=== PATIENT | male | born 1965 | race Caucasian/White ===

== ENCOUNTER → 2016-05-31 | Emergency (ER) | payer BC, OTHER ==
[2016-05-31 14:36] VITALS: BP 118/78; PULSE 98; TEMP 98.8; BMI 27.4
--- NOTE | 2016-05-31 15:54 | PDOC ---
History of Present Illness - General Chief Complaint: Pain Stated Complaint: ABD PAIN Time Seen by Provider: 05/31/16 15:47 History Source: Patient Exam Limitations: No Limitations - History of Present Illness Travel History: No Initial Comments: 05/31/16 15:54 51 yo M with PMhx of HLD and GERD presents with one day history of increased abdominal pain. He states that for the past few months he has had dull LLQ abdominal pain that was acutely exacerbated over the past day. He describes constant non-radiating 6/10 LLQ sharp pain. Pain is worse with palpation and no alleviating factors. Today he also mentions that he has some GERD like symptoms that were worrisome and prompted his trip to ED. He has a history of kidney stones that he sees urology every 6mo and has a known left sided stone but he does not believe this to be kidney stone pain. No change in bowel or bladder habbits. He has family history of colon ca. last colonoscopy was 2014 and was unremarkable. Denies fevers, chills, blood in stools, CP, FOSTER, SOB, N/V. 05/31/16 16:09 Timing/Duration: reports: constant Quality: reports: moderate Abdominal Pain Onset Location: reports: LLQ Pain Radiation: reports: no radiation Activities at Onset: reports: no specific activity Aggravating Factors: improves with: None Alleviating Factors: improves with: None Past History - Travel Traveled outside of the country in the last 30 days: No Close contact w/someone who was outside of country & ill: No - Past Medical History Allergies/Adverse Reactions: Allergies Allergy/AdvReac Type Severity Reaction Status Date / Time No Known Allergies Allergy Verified 05/31/16 14:32 Home Medications: Ambulatory Orders Simvastatin [Zocor -] 5 mg PO HS 05/31/16 GI Disorders: Yes (GERD) Hypercholesterolemia: Yes Kidney Stones: Yes - Surgical History Orthopedic Surgery: Yes (right knee) - Family Disease History Family Disease History: Diabetes: Father (pancreatic cancer), Sister (colon cancer) - Psycho/Social/Smoking Cessation Hx Anxiety: No Suicidal Ideation: No Smoking History: Never smoked Have you smoked in the past 12 months: No Information on smoking cessation initiated: No Hx Alcohol Use: No Drug/Substance Use Hx: No Substance Use Type: None Abd/GI Specific PMHX - Complaint Specific PMHX Colitis: No Diverticulitis: No Gall Bladder Disease: No GERD: Yes Hepatitis: No Pancreatitis: No Review of Systems - Review of Systems Constitutional: No: Chills, Diaphoresis, Fever Respiratory: No: Cough, Shortness of Breath Cardiac (ROS): No: Chest Pain, Edema ABD/GI: Yes: Constipated. No: Abdominal Distended, Blood Streaked Bowels : No: Dysuria, Flank Pain, Hematuria *Physical Exam - Vital Signs Last Vital Signs Temp Pulse Resp BP Pulse Ox 98.8 F 98 H 18 118/78 100 05/31/16 14:33 05/31/16 14:33 05/31/16 14:33 05/31/16 14:33 05/31/16 14:33 - Physical Exam General Appearance: Yes: Appropriately Dressed. No: Apparent Distress HEENT: positive: EOMI, ROSI, Normal ENT Inspection, TMs Normal Neck: positive: Supple Respiratory/Chest: positive: Lungs Clear, Normal Breath Sounds. negative: Respiratory Distress, Accessory Muscle Use Cardiovascular: positive: Regular Rhythm, Regular Rate Vascular Pulses: Dorsalis-Pedis (R): 2+, Doralis-Pedis (L): 2+ Gastrointestinal/Abdominal: positive: Normal Bowel Sounds, Soft, Tenderness ( LLQ upon deep palpation). negative: Distended, Guarding, Rebound, Hepatomegaly , Spleenomegaly Musculoskeletal: positive: Normal Inspection. negative: CVA Tenderness Extremity: positive: Normal Inspection, Normal Range of Motion Integumentary: positive: Normal Color, Dry, Warm. negative: Cyanotic, Erythema Neurologic: positive: documentation writer II-XII NML intact, Fully Oriented, Alert, Normal Mood/ Affect, Motor Strength 5/5 ED Treatment Course - LABORATORY CBC & Chemistry Diagram: 05/31/16 17:00 05/31/16 17:00 Medical Decision Making - Medical Decision Making 05/31/16 16:09 51 yo M with PMhx of HLD and GERD presents with one day history of increased abdominal pain.Pain has been present for several months and recently become more intense. * CBC,CMP, UA * Lipase and Trops *DC/Admit/Observation/Transfer Diagnosis at time of Disposition: Abdominal pain - Discharge Dispostion Disposition: HOME Condition at time of disposition: Stable - Referrals Referrals: Deo Zaidi [Primary Care Provider] - - Patient Instructions Printed Discharge Instructions: DI for Abdominal Pain-Adult, DI for Diverticulosis Additional Instructions: Your blood work demonstrates no findings at this time. Your urine studies are negative. Your CAT scan demonstrates unknown kidney stone on the left side as well as diverticula. Please maintain a high-fiber diet and avoid foods like strawberries with seeds in them. Please follow-up with her primary care doctor. Please take the results I given you and taken to doctor.
--- NOTE | 2016-05-31 17:04 | PDOC ---
[id number] I have performed the following: I have examined & evaluated the patient, The case was reviewed & discussed with the resident, I agree w/resident's findings & plan - HPI HPI: 05/31/16 17:52 51y M hx of HL, presents with epigsatric pain just prior to lunch lasting approx 1/2 hr, p[t also complaining of several months of LLQ pain and pt does have mild LLQ tenderness - exam is unremarkable. epgiastric pain - atypical for ACS, no associated sob, castro, will ck trops, lipase will ck ua to r/o kidney stones vs diverticulitis case signed out to dr. cruz to fu with results and reasses [facility] patient - Physicial Exam PE: 06/04/16 20:11 see above - Medical Decision Making 06/04/16 20:11 see above Heart Score/ECG Review - ECG Impressions Comment:: 05/31/16 17:04 Twelve-lead EKG was performed and reviewed by me. There is normal sinus rhythm with a normal rate. rate of 70 The axis is normal. The intervals are normal. There is normal R wave progression There are no ST or T wave abnormalities. Impression: Normal twelve-lead EKG
[2016-05-31 17:32] LABS: URINE APPEARANCE CLEAR; URINE BILIRUBIN NEGATIVE (NEGATIVE); URINE BLOOD NEGATIVE (NEGATIVE); URINE COLOR YELLOW; URINE GLUCOSE (UA) NEGATIVE (NEGATIVE); URINE KETONE NEGATIVE (NEGATIVE); URINE LEUK ESTERASE NEGATIVE (NEGATIVE); URINE NITRITE NEGATIVE (NEGATIVE); URINE PROTEIN NEGATIVE (NEGATIVE); URINE UROBILINOGEN NEGATIVE E.U./dl (0.2-1.0)
[2016-05-31 17:42] LABS: BASOPHIL 0.3 % (0-2.0); EOSINOPHIL 0.1 % (0-4.5); MCH 31.7 pg (25.7-33.7); MCHC 33.9 g/dl (32.0-35.9); MEAN CELL VOLUME 93.7 fl (80-96); MEAN PLT VOLUME 10.7 fl (7.5-11.1); NEUTROPHILS 76.9 % (42.8-82.8); PLATELET COUNT 177 K/MM3 (134-434); RDW 13.2 % (11.9-15.9); WHITE BLOOD COUNT 7.1 K/mm3 (4.0-10.0)
[2016-05-31 17:57] LABS: ALBUMIN 4.3 g/dl (3.4-5.0); ALK PHOS 54 U/L (45-117); ANION GAP 9 (8-16); BILIRUBIN,TOTAL 0.7 mg/dL (0.2-1.0); CALCIUM 9.3 mg/dL (8.5-10.1); CO2 28 mmol/L (21-32); COCKROFT - GAULT 74.75; CREATININE 1.2 mg/dL (0.7-1.3); GLUCOSE,RANDOM 85 mg/dL (74-106); SGOT/AST 21 U/L (15-37); SGPT/ALT 32 U/L (12-78)
[2016-05-31 18:08] LABS: TROPONIN I < 0.02 ng/ml (0.00-0.05)
--- NOTE | 2016-05-31 20:55 | PDOC ---
*Physical Exam - Vital Signs Last Vital Signs Temp Pulse Resp BP Pulse Ox 98.8 F 98 H 18 118/78 100 05/31/16 14:33 05/31/16 14:33 05/31/16 14:33 05/31/16 14:33 05/31/16 14:33 ED Treatment Course - LABORATORY CBC & Chemistry Diagram: 05/31/16 17:00 05/31/16 17:00 - ADDITIONAL ORDERS Additional order review: Laboratory Results 05/31/16 05/31/16 05/31/16 17:00 17:00 16:17 Sodium 140 Potassium 4.3 Chloride 103 Carbon Dioxide 28 Anion Gap 9 BUN 15 Creatinine 1.2 Creat Clearance w eGFR > 60 Random Glucose 85 Calcium 9.3 Total Bilirubin 0.7 AST 21 ALT 32 Alkaline Phosphatase 54 Creatine Kinase 168 Creatine Kinase Index Y CK-MB (CK-2) < 1.000 Troponin I < 0.02 Total Protein 8.0 Albumin 4.3 Lipase 124 Urine Color Yellow Urine Appearance Clear Urine pH 5.0 Ur Specific [place] 1.023 Urine Protein Negative Urine Glucose (UA) Negative Urine Ketones Negative Urine Blood Negative Urine Nitrite Negative Urine Bilirubin Negative Urine Urobilinogen Negative Ur Leukocyte Esterase Negative 05/31/16 17:00 RBC 4.71 MCV 93.7 MCHC 33.9 RDW 13.2 MPV 10.7 Neutrophils % 76.9 Lymphocytes % 15.6 Monocytes % 7.1 Eosinophils % 0.1 Basophils % 0.3 Medical Decision Making - Medical Decision Making 05/31/16 20:52 Sign-out received from outgoing Emergency Physician Dr. Hein Pt interviewed and examined Ancillary studies reviewed Case discussed in detail with oncoming Emergency Physician including history, physical exam and ancillary studies. CBC, BMP 05/31/16 17:00 05/31/16 17:00 CMP Sodium 140 mmol/L (136-145) 05/31/16 17:00 Potassium 4.3 mmol/L (3.5-5.1) 05/31/16 17:00 Chloride 103 mmol/L (98-107) 05/31/16 17:00 Carbon Dioxide 28 mmol/L (21-32) 05/31/16 17:00 Anion Gap 9 (8-16) 05/31/16 17:00 BUN 15 mg/dL (7-18) 05/31/16 17:00 Creatinine 1.2 mg/dL (0.7-1.3) 05/31/16 17:00 Creat Clearance w eGFR > 60 (>60) 05/31/16 17:00 Random Glucose 85 mg/dL (74-106) 05/31/16 17:00 Calcium 9.3 mg/dL (8.5-10.1) 05/31/16 17:00 Total Bilirubin 0.7 mg/dL (0.2-1.0) 05/31/16 17:00 AST 21 U/L (15-37) 05/31/16 17:00 ALT 32 U/L (12-78) 05/31/16 17:00 Alkaline Phosphatase 54 U/L (45-117) 05/31/16 17:00 Creatine Kinase 168 IU/L (39-308) 05/31/16 17:00 Creatine Kinase Index Y 05/31/16 17:00 CK-MB (CK-2) < 1.000 ng/ml (0.5-3.6) 05/31/16 17:00 Troponin I < 0.02 ng/ml (0.00-0.05) 05/31/16 17:00 Total Protein 8.0 g/dl (6.4-8.2) 05/31/16 17:00 Albumin 4.3 g/dl (3.4-5.0) 05/31/16 17:00 Lipase 124 U/L (73-393) 05/31/16 17:00 Urine Test Results Urine Color Yellow 05/31/16 16:17 Urine Appearance Clear 05/31/16 16:17 Urine pH 5.0 (5.0-8.0) 05/31/16 16:17 Ur Specific [place] 1.023 (1.001-1.035) 05/31/16 16:17 Urine Protein Negative (NEGATIVE) 05/31/16 16:17 Urine Glucose (UA) Negative (NEGATIVE) 05/31/16 16:17 Urine Ketones Negative (NEGATIVE) 05/31/16 16:17 Urine Blood Negative (NEGATIVE) 05/31/16 16:17 Urine Nitrite Negative (NEGATIVE) 05/31/16 16:17 Urine Bilirubin Negative (NEGATIVE) 05/31/16 16:17 Ur Leukocyte Esterase Negative (NEGATIVE) 05/31/16 16:17 CT scan of the abdomen pelvis reviewed. He reports that he has known history of kidney stone on his left side. I had also informed patient of his findings of diverticula and counseled him on high fiber diet and avoidance of foods that could potentially evoke diverticulitis such as diverticulitis. Patient verbalized understanding agrees with plan. Patient reports feeling well and appears well. He is now asymptomatical like to go home. I discussed the physical exam findings, ancillary test results and final diagnoses with the patient. I answered all of the patient's questions. The patient was satisfied with the care received and felt comfortable with the discharge plan and treatment plan. The patient will call their primary care physician within 24 hours to arrange follow-up and will return to the Emergency Department with any new, persistant or worsening symptoms. *DC/Admit/Observation/Transfer Diagnosis at time of Disposition: Abdominal pain Qualifiers: Abdominal location: unspecified location Qualified Code(s): R10.9 - Unspecified abdominal pain - Discharge Dispostion Disposition: HOME Condition at time of disposition: Stable Admit: No - Referrals Referrals: Deo Zaidi [Primary Care Provider] - - Patient Instructions Printed Discharge Instructions: DI for Abdominal Pain-Adult, DI for Diverticulosis Additional Instructions: Your blood work demonstrates no findings at this time. Your urine studies are negative. Your CAT scan demonstrates unknown kidney stone on the left side as well as diverticula. Please maintain a high-fiber diet and avoid foods like strawberries with seeds in them. Please follow-up with her primary care doctor. Please take the results I given you and taken to doctor. - Post Discharge Activity
--- NOTE | 2016-06-01 16:26 | EKG ---
Test Reason : Blood Pressure : / mmHG Vent. Rate : 070 BPM Atrial Rate : 070 BPM P-R Int : 146 ms QRS Dur : 078 ms QT Int : 390 ms P-R-T Axes : 052 009 033 degrees QTc Int : 421 ms NORMAL SINUS RHYTHM NORMAL ECG NO PREVIOUS ECGS AVAILABLE Confirmed by DESIREE WOOD MD ([id number]) on 06/01/2016 4:26:21 PM Referred By: Confirmed By:DESIREE WOOD MD
== END | disposition home or self-care (01) ==
LOC: JER 14:13
DX: R10.32 Left lower quadrant pain (principal); K21.9 Gastro-esophageal reflux disease without esophagitis; E78.00 Pure hypercholesterolemia, unspecified; Z87.442 Personal history of urinary calculi
CPT/HCPCS: 36415; 74177-TC; 80053; 81003; 82550; 82553; 83690; 84484; 85025; 93005; 93010; 99282-25; Q9967

== ENCOUNTER 2018-11-23 09:20 | Emergency (ER) | payer BC, OTHER ==
[2018-11-23 09:43] VITALS: BP 125/94; PULSE 101; TEMP 99; BMI 27.4
[2018-11-23] MEDS ORDERED: ONDANSETRON 4 MG/2 ML VIAL IVPUSH ONE (10:14)
[2018-11-23] MEDS ORDERED: KETOROLAC TROMETHAMINE 30 MG/1 ML VIAL IVPUSH ONE (10:14)
[2018-11-23] MEDS ORDERED: ONDANSETRON 4 MG/2 ML VIAL ONE ×2 (10:32)
[2018-11-23] MEDS ORDERED: KETOROLAC TROMETHAMINE 30 MG/1 ML VIAL ONE (10:32)
[2018-11-23 11:12] LABS: BASO % 0.3 % (0-2.0); EOS % 0.2 % (0-4.5); HEMATOCRIT 47.5 % (35.4-49); HEMOGLOBIN 16.4 GM/dL (11.7-16.9); MCH 32.4 pg (25.7-33.7); MCHC 34.5 g/dl (32.0-35.9); MEAN CELL VOLUME 93.8 fl (80-96); MEAN PLT VOLUME 10.1 fl (7.5-11.1); MONO % 9.9 % (3.8-10.2); NEUT % 66.6 % (42.8-82.8); PLATELET COUNT 196 K/MM3 (134-434); RBC 5.06 M/mm3 (4.00-5.60); RDW 12.9 % (11.9-15.9); WHITE BLOOD COUNT 4.2 K/mm3 (4.0-10.0)
[2018-11-23 11:21] LABS: PH,URINE 5.5 (5.0-8.0); URINE APPEARANCE CLEAR; URINE BILIRUBIN NEGATIVE (NEGATIVE); URINE COLOR YELLOW; URINE GLUCOSE (UA) NEGATIVE (NEGATIVE); URINE KETONE TRACE (NEGATIVE); URINE LEUK ESTERASE NEGATIVE (NEGATIVE); URINE NITRITE NEGATIVE (NEGATIVE); URINE PROTEIN TRACE (NEGATIVE); URINE UROBILINOGEN 0.2 mg/dL (0.2-1.0)
[2018-11-23 11:37] LABS: ALBUMIN 4.4 g/dl (3.4-5.0); BILIRUBIN,TOTAL 0.7 mg/dL (0.2-1); BLOOD UREA NITROGEN 16.6 mg/dL (7-18); CALCIUM 9.9 mg/dL (8.5-10.1); CREATININE 1.3 mg/dL (0.55-1.3); MAGNESIUM 2.4 mg/dL (1.8-2.4); POTASSIUM 4.6 mmol/L (3.5-5.1); TOT PROT 8.5 g/dl (6.4-8.2)
--- NOTE | 2018-11-23 12:31 | PDOC ---
History of Present Illness - General Chief Complaint: Nausea/Vomiting Stated Complaint: JAK PAIN Time Seen by Provider: 11/23/18 09:56 History Source: Patient Exam Limitations: No Limitations - History of Present Illness Travel History: No Initial Comments: 11/23/18 10:39 53-year-old male presents the emergency room with complaints of Left abdominal cramping with nausea frequent belching for the past 3 days. Patient has no other complaints at this time. Patient history of diverticulosis but denies any other infectious or inflammatory diseases. Patient has no urinary complaints, irregular bowel movements, recent travel, recent illness, recent change in diet , or recent sick contacts. Timing/Duration: reports: intermittent Quality: reports: mild, cramping, sharpness Abdominal Pain Onset Location: reports: LUQ, LLQ Pain Radiation: reports: no radiation Activities at Onset: reports: none Aggravating Factors: improves with: None Alleviating Factors: improves with: None Past History - Travel Traveled outside of the country in the last 30 days: No Close contact w/someone who was outside of country & ill: No - Past Medical History Allergies/Adverse Reactions: Allergies Allergy/AdvReac Type Severity Reaction Status Date / Time No Known Allergies Allergy Verified 05/31/16 14:32 Home Medications: Ambulatory Orders Simvastatin [Zocor -] 5 mg PO HS 05/31/16 Oxycodone HCl/Acetaminophen [Percocet 5-325 mg Tablet] 1 - 2 tab PO Q6H PRN #12 tab MDD 4 11/23/18 Tamsulosin HCl [Flomax] 0.4 mg PO DAILY #7 cap.er.24h 11/23/18 GI Disorders: Yes (GERD) Hypercholesterolemia: Yes Kidney Stones: Yes - Surgical History Orthopedic Surgery: Yes (right knee) - Psycho Social/Smoking Cessation Hx Smoking History: Never smoked Have you smoked in the past 12 months: No Information on smoking cessation initiated: No Hx Alcohol Use: No Drug/Substance Use Hx: No Substance Use Type: None Patient Lives Alone: No Lives with/in: spouse/SO Abd/GI Specific PMHX - Complaint Specific PMHX Colitis: No Diverticulitis: No Gall Bladder Disease: No GERD: Yes Hepatitis: No Pancreatitis: No Review of Systems - Review of Systems Able to Perform ROS?: Yes Constitutional: No: Symptoms Reported HEENTM: No: Symptoms Reported Respiratory: No: Symptoms reported Cardiac (ROS): No: Symptoms Reported ABD/GI: Yes: Nausea, Abdominal cramping, Other (frequent belching) : No: Symptoms Reported Musculoskeletal: No: Symptoms Reported Integumentary: No: Symptoms Reported Neurological: No: Symptoms reported Endocrine: No: Symptoms Reported *Physical Exam - Vital Signs Last Vital Signs Temp Pulse Resp BP Pulse Ox 99 F 101 H 18 125/94 96 11/23/18 09:39 11/23/18 09:39 11/23/18 09:39 11/23/18 09:39 11/23/18 09:39 - Physical Exam General Appearance: Yes: Nourished, Appropriately Dressed. No: Apparent Distress HEENT: negative: Pale Conjunctivae Neck: positive: Normal Thyroid Respiratory/Chest: positive: Lungs Clear, Normal Breath Sounds. negative: Respiratory Distress, Accessory Muscle Use Cardiovascular: positive: Regular Rhythm, Tachycardia. negative: Murmur Gastrointestinal/Abdominal: positive: Normal Bowel Sounds, Soft, Tenderness ( mild left upper quadrant left flank and left lower quadrant). negative: Distended, Guarding, Rebound Musculoskeletal: negative: CVA Tenderness Extremity: positive: Normal Inspection Integumentary: positive: Normal Color, Warm, Moist Neurologic: positive: Motor Strength 5/5 (ambulatory) ED Treatment Course - LABORATORY CBC & Chemistry Diagram: 11/23/18 11:00 11/23/18 11:00 - ADDITIONAL ORDERS Additional order review: Laboratory Results 11/23/18 11/23/18 11:00 11:00 Sodium 139 Potassium 4.6 Chloride 103 Carbon Dioxide 30 Anion Gap 6 L BUN 16.6 Creatinine 1.3 Est GFR (CKD-EPI)AfAm 72.20 Est GFR (CKD-EPI)NonAf 62.29 Random Glucose 104 Calcium 9.9 Magnesium 2.4 Total Bilirubin 0.7 AST 21 ALT 35 Alkaline Phosphatase 61 Total Protein 8.5 H Albumin 4.4 Urine Color Yellow Urine Appearance Clear Urine pH 5.5 Ur Specific [place] 1.028 Urine Protein Trace Urine Glucose (UA) Negative Urine Ketones Trace H Urine Blood Negative Urine Nitrite Negative Urine Bilirubin Negative Urine Urobilinogen 0.2 Ur Leukocyte Esterase Negative 11/23/18 11:00 RBC 5.06 MCV 93.8 MCHC 34.5 RDW 12.9 MPV 10.1 Neutrophils % 66.6 Lymphocytes % 23.0 D Monocytes % 9.9 Eosinophils % 0.2 D Basophils % 0.3 - RADIOLOGY Radiology Studies Ordered: Category Date Time Status ABDOMEN & PELVIS CT W/O CONTR [CT] Stat CT Scan 11/23/18 11:54 Ordered - Medications Given in the ED: ED Medications Discontinued Medications Generic Name Dose Route Start Last Admin Trade Name Freq PRN Reason Stop Dose Admin Ketorolac Tromethamine 30 mg 11/23/18 10:14 11/23/18 10:45 Toradol Injection - IVPUSH 11/23/18 10:15 30 mg ONCE ONE Administration Ondansetron HCl 4 mg 11/23/18 10:14 11/23/18 10:45 Zofran Injection IVPUSH 11/23/18 10:15 4 mg ONCE ONE Administration Medical Decision Making - Medical Decision Making 11/23/18 10:38 CC: Left abdominal pain associated with nausea for the past 2 days intermittently history of diverticulosis Exam: Slightly tachycardic temperature 99. orally patient with left upper quadrant and left lower quadrant tenderness on exam no CVA tenderness Plan: Labs, urine and likely CT 11/23/18 12:43 Laboratory Tests 11/23/18 11/23/18 11/23/18 11:00 11:00 11:00 WBC 4.2 Hgb 16.4 Hct 47.5 Neutrophils % 66.6 Sodium 139 Potassium 4.6 Chloride 103 Carbon Dioxide 30 Anion Gap 6 L BUN 16.6 Creatinine 1.3 Calcium 9.9 Magnesium 2.4 Total Bilirubin 0.7 AST 21 ALT 35 Alkaline Phosphatase 61 Total Protein 8.5 H Albumin 4.4 Urine Ketones Trace H Urine Bilirubin Negative Ur Leukocyte Esterase Negative Patient states nausea has subsided but pain present yet not as severe Patient ordered for abdominal CT without contrast 11/23/18 13:[address] shows 2 calcifications within the lower pole of the left kidney consistent with nonobstructing calculi. The stones are measuring 2 and 4 mm. No additional calculi identified within the kidneys, ureters or urinary bladder. There is no evidence of hydronephrosis or obstructive uropathy. There is no evidence of pneumoperitoneum, bowel obstruction or intra-abdominal abscess. There is no CT evidence of acute appendicitis, colitis or diverticulitis. 11/23/18 13:31 Patient states feeling much better. Patient states can follow-up with his urologist Dr. Longoria since he's had kidney stones in the past with his last lithotripsy done in June of this year patient given prescription for Flomax and Percocet with recommendation to drink more fluids and strain his urine which she states has a strainer at home. Discharge - Discharge Information Problems reviewed: Yes Clinical Impression/Diagnosis: Kidney calculi Condition: Improved Disposition: HOME - Additional Discharge Information Prescriptions: Oxycodone HCl/Acetaminophen [Percocet 5-325 mg Tablet] 1 - 2 tab PO Q6H PRN #12 tab MDD 4 PRN Reason: Pain Tamsulosin HCl [Flomax] 0.4 mg PO DAILY #7 cap.er.24h - Follow up/Referral Referrals: ON STAFF,NOT [Primary Care Provider] - - Patient Discharge Instructions Patient Printed Discharge Instructions: DI for Kidney Stones Additional Instructions: Please drink at least 2 L of water on a daily basis. Take medication as prescribed. Strain all urine. Follow-up with urologist and return to ED if symptoms worsen prior to your follow-up. - Post Discharge Activity
== END 2018-11-23 14:32 | disposition home or self-care (01) ==
LOC: JER 09:20
PROC: 3E033GC Introduction of Other Therapeutic Substance into Peripheral Vein, Percutaneous Approach (ICD-10-PCS; principal; 2018-11-23)
PROC: 3E0333Z Introduction of Anti-inflammatory into Peripheral Vein, Percutaneous Approach (ICD-10-PCS; 2018-11-23)
DX: N20.0 Calculus of kidney (principal); E78.00 Pure hypercholesterolemia, unspecified; K21.9 Gastro-esophageal reflux disease without esophagitis
CPT/HCPCS: 36415; 74176-TC; 80053; 81003; 83735; 85025; 87086; 99281-25